=== PATIENT | female | born 1960 | race Asian ===

== ENCOUNTER 2021-03-23 02:50 | Emergency (ER) | payer OTHER ==
[~2021-03-23] VITALS: Ht 172.7 cm; Wt 48.0 kg
[2021-03-23] MEDS ORDERED: FAMOTIDINE 20 MG TABLET PO ONE (04:30)
[2021-03-23] MEDS ORDERED: MAALOX/HYOSCYAMINE/LIDOCAINE 45 ML BTL PO ONE (04:30)
[2021-03-23] MEDS ORDERED: MAALOX/HYOSCYAMINE/LIDOCAINE 45 ML BTL ONE (04:38)
[2021-03-23] MEDS ORDERED: FAMOTIDINE 20 MG TABLET ONE (04:38)
--- NOTE | 2021-03-23 04:50 | NUR ---
PT C/O OF EPIGASTRIC PAIN SINCE 2300 LAST NIGHT AFTER EATING SOUR FOODS, PIZZA, AND SPEGHETTI. PT STATES SHE TOOK A PROTONIX AFTER FOR RELIEF BUT NO SUCCESS. ATTACHED TO CARD/SP02/BP MONITORS. VSS. MANN. BED IN LOW POSITION. RAILS ENGAGED. CALL LIGHT ON LAP. TM
[2021-03-23 05:07] LABS: ALBUMIN 4.2 g/dL (3.4-5.0); ANION GAP 6 mmol/L (5-15); CALCIUM 9.1 mg/dL (8.5-10.1); CHLORIDE 102 mmol/L (98-107)
[2021-03-23 05:12] LABS: BASOPHILS % (AUTO) 1 % (0-1); EOSINOPHILS % (AUTO) 1 % (1-7); LYMPHOCYTES % (AUTO) 29 % (22-44); MEAN CORPUSCULAR HEMOGLOBIN 32.5 pg (27.0-34.8); MEAN CORPUSCULAR HGB CONC 34.6 g/dL (32.4-35.8); MEAN PLATELET VOLUME 7.2 fL (7.4-10.4); MONOCYTES % (AUTO) 7 % (2-9); NEUTROPHILS % (AUTO) 63 % (42-75); PLATELET COUNT 322 x10^3/uL (130-400); RED BLOOD COUNT 4.14 x10^6/uL (3.82-5.3); RED CELL DISTRIBUTION WIDTH 12.8 % (9.6-15.2)
[2021-03-23 05:14] LABS: ALANINE AMINOTRANSFERASE 30 U/L (12-78); ALKALINE PHOSPHATASE 74 U/L (45-117); BILIRUBIN,TOTAL 0.5 mg/dL (0.2-1.0); CREATININE 0.74 mg/dL (0.55-1.02); TOTAL PROTEIN 8.3 g/dL (6.4-8.2); TROPONIN I < 0.015 ng/mL (0.000-0.045)
[2021-03-23 05:38] VITALS: BP 105/76
--- NOTE | 2021-03-23 05:53 | NUR ---
TASK RN: Patient given discharge instructions and they have confirmed that they understand the instructions. Patient ambulatory with steady gait. NAD, all questions answered appropriately, denies additional needs at this time. No personal belongings left in room after discharge.
== END 2021-03-23 06:11 | disposition home or self-care (01) ==
LOC: ED 05:43
DX: K21.9 Gastro-esophageal reflux disease without esophagitis (principal); R00.2 Palpitations
CPT/HCPCS: 36415; 71045; 80053; 83690; 84484; 85025; 93005; 99285